=== PATIENT | female | born 1955 | race Caucasian/White ===

== ENCOUNTER 2017-06-19 11:23 | Emergency (ER) | payer OTHER ==
[2017-06-19] MEDS ORDERED: OXYMETAZOLINE 30 ML NASAL SPRAY EACHNARE ONE (12:27)
[2017-06-19] MEDS ORDERED: HYDROCODONE/APAP 5/325 TAB PO ONE (12:28)
--- NOTE | 2017-06-19 12:28 | EDPHY ---
H & P Stated Complaint: fell lac to nose Time Seen by Provider: 06/19/17 12:28 HPI/ROS: HPI: This is a 61-year-old female who presents with Chief Complaint: Facial trauma Location: Nose Quality: Trauma Duration: 1 hour prior to arrival Signs and Symptoms: No loss consciousness, no headache, no neck pain, + epistaxis, no dizziness, no chest pain, no shortness of breath, no tinnitus Timing: Sudden Severity: [id number] Context: Patient was at work when she tripped and fell forward hitting the right side of her face specifically her right cheek and nose on a metal bucket. Reports her tetanus is up-to-date. Denies loss of consciousness. Witnessed event. Does not take any blood thinners Modifying Factors: Direct pressure stopped the bleeding Comment: ROS: Constitutional: No fever, no chills, no weight loss Eyes: No blurred vision Respiratory: No shortness of breath, no cough Cardiovascular: No chest pain Gastrointestinal: No nausea, no vomiting no diarrhea Genitourinary: No dysuria Extremities: No myalgias Neurologic: No weakness, no numbness Skin: No rashes Hematologic: No bruising, no bleeding MEDICAL/SURGICAL HISTORY: Generally healthy. Source: Patient Exam Limitations: No limitations - Personal History Current Tetanus/Diphtheria Vaccine: Yes Current Tetanus Diphtheria and Acellular Pertussis (TDAP): Yes - Medical/Surgical History Hx Asthma: No Hx Chronic Respiratory Disease: No Hx Diabetes: No Hx Cardiac Disease: No Hx Renal Disease: No Hx Cirrhosis: No Hx Alcoholism: No Hx HIV/AIDS: No Hx Splenectomy or Spleen Trauma: No Other PMH: UC ,OA - Social History Smoking Status: Never smoked - Physical Exam Exam: CONSTITUTIONAL: Pleasant well-appearing adult white female, awake and alert, no obvious distress HEENT: normocephalic, right cheeks swelling/ecchymosis; no crepitus; nasal bridge abrasions; dried epistaxis right nare; no septal hematoma. PERRL, EOMI. No periorbital ecchymosis. No globe entrapment. Tympanic membranes clear. No TM rupture. Oropharynx clear, no tongue or lip laceration. no exudate and moist pink mucosa. Airway patent. NECK: supple, no tenderness, FROM, no lymphadenopathy. No meningismus. Cardiovascular: Normal S1/S2, regular rate, regular rhythm, without murmur rub or gallop. PULMONARY/CHEST: Symmetrical and nontender. No crepitus. Clear to auscultation bilaterally Good air movement. No accessory muscle usage. ABDOMEN: Soft, nondistended, nontender, no rebound, no guarding, no peritoneal signs, no masses or organomegaly. No CVAT. EXTREMITIES: 2/2 pulses, no deformities, no clubbing, no cyanosis or edema. NEUROLOGICAL: no focal neuro deficits. GCS 15. SKIN: Warm and dry, no erythema. no rash. Good capillary refill. Constitutional: Initial Vital Signs Temperature (C) 36.9 C 06/19/17 11:27 Heart Rate 70 06/19/17 11:27 Respiratory Rate 16 06/19/17 11:27 Blood Pressure 139/78 H 06/19/17 11:27 O2 Sat (%) 100 06/19/17 11:27 O2 Delivery Mode Room Air Allergies/Adverse Reactions: No Known Allergies Allergy (Unverified 06/19/17 11:29) Home Medications: Medication Instructions Recorded oxyCODONE/APAP 5/325 [Percocet 1 - 2 tab PO Q4H PRN #12 tab 06/19/17 5/325 (*)] Medical Decision Making ED Course/Re-evaluation: CT maxillofacial scan, wound care, oral medication ordered Abrasions clean with mild soap and water and bacitracin placed Oxymetazoline nasal spray placed in both nares and given oral Delphos for pain relief Fall was accidental in nature Tetanus is up-to-date. No signs of septal hematoma 1320: called by radiologist who advises CT maxillofacial scan showed nasally on fracture on both sides right side is mildly displaced; no sinus involvement; no globe entrapment; no orbital wall fracture Follow-up ENT. Differential Diagnosis: Head injury including but not limited to concussion, skull fracture, intraparenchymal contusion, subarachnoid, subdural and epidural hematoma. - Data Points Medications Given: Discontinued Medications Hydrocodone Bitart/Acetaminophen ([place] 5/325) 1 tab PO EDNOW ONE Stop: 06/19/17 12:29 Last Admin: 06/19/17 12:35 Dose: 1 tab Oxymetazoline HCl (Afrin Nasal Freedom) 2 sprays EACHNARE EDNOW ONE Stop: 06/19/17 12:28 Last Admin: 06/19/17 12:36 Dose: 2 spray Departure - Departure Disposition: Home, Routine, Self-Care Clinical Impression: Nasal bones, closed fracture Qualifiers: Encounter type: initial encounter Qualified Code(s): S02.2XXA - Fracture of nasal bones, initial encounter for closed fracture Facial abrasion Qualifiers: Encounter type: initial encounter Qualified Code(s): S00.81XA - Abrasion of other part of head, initial encounter Condition: Good Instructions: Nasal Fracture (ED) Additional Instructions: Apply ice to the nose directly for 30-40 minutes for 2 to 3 times a day for the next 2 days to reduce swelling. No nose blowing. Avoid any sports or activities that would cause contact to your nose. Follow up with ear nose and throat within 6-10 days. Referrals: Aditya Laureano MD [Medical Doctor] - 5-7 days, call for appt. Prescriptions: oxyCODONE/APAP 5/325 [Percocet 5/325 (*)] 1 - 2 tab PO Q4H PRN #12 tab PRN Reason: Pain, Severe
[2017-06-19 13:50] VITALS: BP 116/61; PULSE 65; RESP 15; TEMP 98.8; O2SAT 99
== END 2017-06-19 13:50 | disposition home or self-care (01) ==
DX: S02.2XXA Fracture of nasal bones, initial encounter for closed fracture (principal); S00.81XA Abrasion of other part of head, initial encounter; W01.198A Fall on same level from slipping, tripping and stumbling with subsequent striking against other object, initial encounter; Y92.69 Other specified industrial and construction area as the place of occurrence of the external cause; Y99.8 Other external cause status; Y93.89 Activity, other specified